=== PATIENT | male | born 1955 | race Caucasian/White ===

== ENCOUNTER 2016-12-29 00:22 | Day surgery (SDC) | payer OTHER ==
[~2016-12-29 00:22] MED LIST: CALC-976 PO; LEVO175T5 PO; MULT-908 PO; VANAQ
[2016-12-29] MEDS ORDERED: Thyrotropin 0.9 mg/mL Inj IM ONE (10:00)
--- NOTE | 2016-12-29 10:51 | NUR ---
thyrogen injection Pt had 1st dose of thyrogen injection in right buttock, tolerated well. Pt stated verbal understanding of discharge instructions regarding follow up appointments and use of home medications
== END 2016-12-29 23:59 | disposition home or self-care (01) ==
LOC: SOUO 00:22 → EDSTATUS 10:51 → SOUO 23:59
PROVIDERS: ATTEND Nurse Practitioner
DX: C73 Malignant neoplasm of thyroid gland (principal)
CPT/HCPCS: 96372; J3240

== ENCOUNTER 2016-12-30 00:28 | Day surgery (SDC) | payer OTHER ==
[2016-12-30 08:30] VITALS: BP 141/90; PULSE 60; RESP 16; O2SAT 100
--- NOTE | 2016-12-30 08:30 | NUR ---
PT HERE FOR DAY 2 OF THYROGEN. FEELING FINE, NO COMPLAINTS.
--- NOTE | 2016-12-30 08:35 | NUR ---
INJECTION GIVEN IN LEFT GLUTEAL. HOME AFTER INJECTION
[2016-12-30] MEDS ORDERED: Thyrotropin 0.9 mg/mL Inj IM ONE (10:00)
== END 2016-12-30 23:59 | disposition home or self-care (01) ==
LOC: SOUO 00:28 → EDSTATUS 10:53 → SOUO 23:59
PROVIDERS: ATTEND Nurse Practitioner
DX: C73 Malignant neoplasm of thyroid gland (principal)
CPT/HCPCS: 96372; J3240